=== PATIENT | male | born 2000 | race Caucasian/White ===

== ENCOUNTER 2020-09-01 19:43 | Emergency (ER) | payer OTHER ==
[~2020-09-01] VITALS: Ht 175.3 cm; Wt 80.6 kg
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
[2020-09-01 21:18] VITALS: BP 131/69
== END 2020-09-01 21:27 | disposition home or self-care (01) ==
LOC: M ED 19:43
DX: S16.1XXA Strain of muscle, fascia and tendon at neck level, initial encounter (principal); V49.49XA Driver injured in collision with other motor vehicles in traffic accident, initial encounter; Y92.410 Unspecified street and highway as the place of occurrence of the external cause; Z88.0 Allergy status to penicillin